=== PATIENT | female | born 1990 | race Two or more races ===

== ENCOUNTER → 2023-05-22 | Emergency (ER) | payer OTHER ==
[~2023-05-22] VITALS: Ht 172.7 cm; Wt 72.6 kg
[~2023-05-22] MED LIST: KETOROLAC TROMETHAMINE 60 MG VIAL IM ONE
== END | disposition home or self-care (01) ==
LOC: ER 12:14
DX: M25.539 Pain in unspecified wrist (principal)

== ENCOUNTER 2024-11-11 03:22 | Emergency (ER) | payer OTHER ==
[~2024-11-11] VITALS: Ht 172.7 cm; Wt 72.6 kg
[2024-11-11] MEDS ORDERED: CEFTRIAXONE SODIUM 1,000 MG VIAL IM STA (05:43)
[2024-11-11] MEDS ORDERED: NEOMYCIN/POLYMYXIN B/HYDROCORT 20 DR/ML BOTTLE OT STA (05:44)
[2024-11-11] MEDS ORDERED: KETOROLAC TROMETHAMINE 10 MG TABLET PO STA (05:44)
[2024-11-11] MEDS ORDERED: KETOROLAC TROMETHAMINE 10 MG TABLET PO ONE (05:46)
[2024-11-11] MEDS ORDERED: CEFTRIAXONE SODIUM 1,000 MG VIAL ONE (05:47)
[2024-11-11] MEDS ORDERED: LIDOCAINE HCL 1% 10ML VIAL ONE (05:47)
[2024-11-11] MEDS ORDERED: CEPHALEXIN500 MG PO (05:50)
[2024-11-11] MEDS ORDERED: KETO10TA2 PO (05:50)
[2024-11-11] MEDS ORDERED: CORTISPORIN EAR10 M1 OT (05:52)
== END 2024-11-11 06:05 ==
LOC: ER 03:48
DX: H60.90 Unspecified otitis externa, unspecified ear (principal); H92.01 Otalgia, right ear